=== PATIENT | female | born 1990 | race American Indian/Alaskan Native ===

== ENCOUNTER 2017-01-19 11:18 | Emergency (ER) | payer MEDICAID ==
[2017-01-19 11:24] VITALS: BMI 30.7
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
[2017-01-19] MEDS ORDERED: Acetaminophen-Codeine 300/30 mg Tab PO STA (12:11)
[2017-01-19] MEDS ORDERED: Acetaminophen-Codeine 300/30 mg Tab PO ONE (12:41)
[2017-01-19 13:05] VITALS: BP 118/83; PULSE 78; RESP 20; TEMP 97.8
[2017-01-23 11:59] VITALS: O2SAT 99
== END 2017-01-19 13:05 | disposition home or self-care (01) ==
LOC: C.ER 11:18
DX: S61.411A Laceration without foreign body of right hand, initial encounter (principal); W01.110A Fall on same level from slipping, tripping and stumbling with subsequent striking against sharp glass, initial encounter; Y93.41 Activity, dancing; Y92.89 Other specified places as the place of occurrence of the external cause

== ENCOUNTER 2017-03-20 01:54 | Emergency (ER) | payer MEDICAID ==
[2017-03-20 02:08] VITALS: O2SAT 97
[2017-03-20 02:17] VITALS: BMI 31.3
--- NOTE | 2017-03-20 02:40 | C.PDOC ---
History Of Present Illness Patient is a 26 y/o female who presents to the ED for dental pain to the right side of her mouth for the last week. Patient states she has not been able to visit a dentist yet but has been taking Tramadol and Tylenol with no relief. Denies fever, no difficulty breathing or swallowing. Time Seen by Provider: 03/20/17 02:20 Chief Complaint (Nursing): Dental Pain History Per: Patient History/Exam Limitations: no limitations Onset/Duration Of Symptoms: Days (x1 week) Current Symptoms Are (Timing): Still Present Recent travel outside of the [place]: No Additional History Per: Patient Past Medical History Reviewed: Historical Data, Nursing Documentation, Vital Signs Vital Signs: Last Vital Signs Temp 98.3 F 03/20/17 03:23 Pulse 72 03/20/17 03:23 Resp 18 03/20/17 03:23 BP 140/90 03/20/17 03:23 Pulse Ox 97 03/20/17 03:29 - Medical History PMH: No Chronic Diseases Surgical History: No Surg Hx Family History: States: Unknown Family Hx - Social History Hx Tobacco Use: No Hx Alcohol Use: No Hx Substance Use: No - Immunization History Hx Tetanus Toxoid Vaccination: Yes Hx Influenza Vaccination: No Hx Pneumococcal Vaccination: No Review Of Systems Constitutional: Negative for: Fever ENT: Positive for: Mouth Pain (right side dental pain ) Physical Exam - Physical Exam Appears: Well, Non-toxic, No Acute Distress Skin: Normal Color, Warm, Dry Head: Atraumatic, Normacephalic Eye(s): bilateral: Normal Inspection, EOMI Nose: Normal Oral Mucosa: Moist Tongue: No Swelling Teeth: Caries (right maxillary molar), Tender To Palpation (right maxillary molar) Gingiva: No Erythema, No Swelling, No Abscess Throat: Normal, No Erythema, No Exudate Neck: Normal ROM, Supple Chest: Symmetrical Cardiovascular: Rhythm Regular Respiratory: Normal Breath Sounds Neurological/Psych: Oriented x3, Normal Speech ED Course And Treatment O2 Sat by Pulse Oximetry: 97 (room air) Pulse Ox Interpretation: Normal Progress Note: Plan: Cleocin, Toradol, and Lidocaine 2% administered. Reassessment: On reassessment, patient is resting comfortably, and is in no acute distress. Patient was instructed to follow up with dentist in 1-2 days for further evaluation Disposition - Disposition Disposition: HOME/ ROUTINE Disposition Time: 02:39 Condition: STABLE Additional Instructions: Follow up with your dentist tomorrow for further evaluation. Take medications as prescribed. Return to the emergency department at any time if symptoms persist or worsen. Prescriptions: Clindamycin [Cleocin] 300 mg PO Q6 #28 cap Ketorolac Tromethamine [Toradol] 10 mg PO Q6 PRN #20 tab PRN Reason: Pain, Moderate (4-7) Instructions: Toothache (ED) Forms: [facility] (Vietnamese) - Clinical Impression Clinical Impression: Toothache - Scribe Statement The provider has reviewed the documentation as recorded by the Scribe Meli Yee All medical record entries made by the Scribe were at my direction and personally dictated by me. I have reviewed the chart and agree that the record accurately reflects my personal performance of the history, physical exam, medical decision making, and the department course for this patient. I have also personally directed, reviewed, and agree with the discharge instructions and disposition.
[2017-03-20 03:26] VITALS: BP 140/90; PULSE 72; RESP 18; TEMP 98.3
== END 2017-03-20 03:23 | disposition home or self-care (01) ==
LOC: C.ER 01:54
DX: K08.89 Other specified disorders of teeth and supporting structures (principal)
CPT/HCPCS: 96372; 99284; J1885

== ENCOUNTER 2017-08-18 09:05 | Emergency (ER) | payer MEDICAID ==
[2017-08-18 09:05] VITALS: BMI 31.3
[2017-08-18 09:20] VITALS: RESP 18; TEMP 98; O2SAT 99
[2017-08-18 09:49] LABS: SQUAMOUS EPITHIAL 1 /hpf (0-5); URINE BILIRUBIN NEGATIVE (NEGATIVE); URINE BLOOD NEGATIVE (NEGATIVE); URINE CLARITY Clear (Clear); URINE COLOR Yellow (YELLOW); URINE GLUCOSE (UA) NORMAL (Normal); URINE LEUKOCYTE ESTERASE NEG Leu/uL (Negative); URINE PROTEIN NEGATIVE (NEGATIVE); URINE UROBILINOGEN NORMAL mg/dL (0.2-1.0)
[2017-08-18 09:50] LABS: HCG,QUALITATIVE URINE NEGATIVE (NEGATIVE)
--- NOTE | 2017-08-18 11:22 | C.PDOC ---
History Of Present Illness 27yo female, presents to ED for evaluation of intermittent pelvic pain for the past several months. Patient states she [place] [facility] [place] multiple US and CT scans which indicates she has uterine fibroids. Patient states when she gets Toradol, it helps alleviate her pain. She denies any nausea , vomiting, vaginal bleeding or discharge. No other complaints. Time Seen by Provider: 08/18/17 09:29 Chief Complaint (Nursing): Female Genitourinary History Per: Patient History/Exam Limitations: no limitations Onset/Duration Of Symptoms: Intermittent Episodes, Persistent Current Symptoms Are (Timing): Still Present Associated Symptoms: denies: Nausea, Vomiting, Diarrhea, Constipation Abnormal Vaginal Bleeding: No Past Medical History Reviewed: Historical Data, Nursing Documentation, Vital Signs Vital Signs: Last Vital Signs Temp 98 F 08/18/17 09:19 Pulse 92 H 08/18/17 11:44 Resp 18 08/18/17 11:44 BP 103/69 08/18/17 11:44 Pulse Ox 99 08/18/17 11:44 - Medical History PMH: No Chronic Diseases Surgical History: No Surg Hx Family History: States: Unknown Family Hx - Social History Hx Tobacco Use: No Hx Alcohol Use: No Hx Substance Use: No - Immunization History Hx Tetanus Toxoid Vaccination: Yes Hx Influenza Vaccination: No Hx Pneumococcal Vaccination: No Review Of Systems Except As Marked, All Systems Reviewed And Found Negative. Constitutional: Negative for: Fever, Chills Gastrointestinal: Negative for: Vomiting, Abdominal Pain Genitourinary: Positive for: Pelvic Pain. Negative for: Vaginal Discharge, Vaginal Bleeding Physical Exam - Physical Exam Appears: Non-toxic, No Acute Distress Skin: Normal Color Head: Normacephalic Eye(s): bilateral: Normal Inspection Oral Mucosa: Moist Neck: Normal ROM, Supple Chest: Symmetrical Cardiovascular: Rhythm Regular Respiratory: Normal Breath Sounds, No Wheezing Gastrointestinal/Abdominal: Normal Exam, Soft, No Tenderness Extremity: Normal ROM Neurological/Psych: Oriented x3 ED Course And Treatment O2 Sat by Pulse Oximetry: 99 (RA) Pulse Ox Interpretation: Normal Progress Note: Patient offered labs and US but refuses a workup. Urinalysis with no significant findings. Urine HCG negative. Patient given Toradol 30mg IVP with relief of pain. Stable for discharge home, advised to follow up with OBGYN. Disposition - Disposition Disposition: HOME/ ROUTINE Disposition Time: 11:20 Condition: IMPROVED Additional Instructions: Follow up with PMD and OBGYN within 1-2 days. Return to ED if feel worse. 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 - Scribe Statement The provider has reviewed the documentation as recorded by the Scribe (Yue Mancini) Provider Attestation: All medical record entries made by the Scribe were at my direction and personally dictated by me. I have reviewed the chart and agree that the record accurately reflects my personal performance of the history, physical exam, medical decision making, and the department course for this patient. I have also personally directed, reviewed, and agree with the discharge instructions and disposition.
[2017-08-18 11:46] VITALS: BP 103/69; PULSE 92
== END 2017-08-18 11:45 | disposition home or self-care (01) ==
LOC: C.ER 09:05
DX: R10.2 Pelvic and perineal pain (principal)
CPT/HCPCS: 81001; 84703; 96374; 99284; J1885

== ENCOUNTER 2017-12-09 16:08 | Emergency (ER) | payer MEDICAID ==
[2017-12-09 16:08] VITALS: BMI 31.3
[2017-12-09] MEDS ORDERED: DiphenhydrAMINE 50 mg/ml Inj IVP STA (16:27)
[2017-12-09] MEDS ORDERED: Sodium Chloride 0.9% 1,000 ML IV ONE (16:27)
[2017-12-09] MEDS ORDERED: DiphenhydrAMINE 50 mg/ml Inj ONE (17:03)
[2017-12-09] MEDS ORDERED: Sodium Chloride 0.9% 1,000 ML ONE (17:03)
[2017-12-09 17:25] LABS: BASO # 0.1 K/uL (0.0-0.2); BASO % 0.6 % (0.0-2.0); EOS # 0.2 K/uL (0.0-0.7); EOS % 1.6 % (0.0-4.0); HEMOGLOBIN 13.2 g/dL (11.0-16.0); LYMPH # 4.7 K/uL (1.0-4.3); MEAN CELL VOLUME 93.6 fL (81.0-99.0); MEAN CORPUSCULAR HEMOGLOBIN 32.2 pg (27.0-31.0); MEAN CORPUSCULAR HGB CONC 34.4 g/dL (33.0-37.0); MEAN PLATELET VOLUME 8.3 fL (7.2-11.7); MONO % 6.8 % (0.0-10.0); NEUT # 8.3 K/uL (1.8-7.0); NRBC % 0.1 % (0.0-2.0); RBC 4.12 Mil/uL (3.80-5.20); RED CELL DISTRIBUTION WIDTH 12.9 % (11.5-14.5); WHITE BLOOD COUNT 14.3 K/uL (4.8-10.8)
[2017-12-09 17:38] LABS: ALB/GLOB RATIO 1.7 (1.0-2.1); ALBUMIN 4.8 g/dL (3.5-5.0); ALT/SGPT 65 U/L (9-52); AST/SGOT 41 U/L (14-36); BLOOD UREA NITROGEN 13 mg/dL (7-17); GFR AFRICAN-AMERICAN > 60; GFR NON-AFRICAN AMERICAN > 60
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
[2017-12-09 18:29] VITALS: BP 140/84; PULSE 100; TEMP 99.1
[2017-12-09 18:36] LABS: SQUAMOUS EPITHIAL 4 /hpf (0-5); URINE BACTERIA RARE (<OCC); URINE BILIRUBIN NEGATIVE (NEGATIVE); URINE BLOOD NEGATIVE (NEGATIVE); URINE CLARITY Hazy (Clear); URINE COLOR Straw (YELLOW); URINE GLUCOSE (UA) NORMAL (Normal); URINE LEUKOCYTE ESTERASE NEG Leu/uL (Negative); URINE PROTEIN NEGATIVE (NEGATIVE); URINE UROBILINOGEN NORMAL mg/dL (0.2-1.0)
[2017-12-09 18:37] LABS: HCG,QUALITATIVE URINE NEGATIVE (NEGATIVE)
[2017-12-09 19:02] VITALS: RESP 16
--- NOTE | 2017-12-11 21:02 | CARD ---
APPROVED REPORT EKG Measurement Heart [id number] <Conclusion> Sinus tachycardia Nonspecific T wave abnormality Abnormal ECG
[2017-12-13 07:39] VITALS: O2SAT 99
== END 2017-12-09 19:02 | disposition home or self-care (01) ==
LOC: C.ER 16:08
DX: R51 Headache (principal)
CPT/HCPCS: 80053; 81001; 82948; 84703; 85025; 93005; 96361; 96374; 96375; 99285; J1200; J1885; J2765; J7030

== ENCOUNTER 2018-10-27 03:21 | Emergency (ER) | payer MEDICAID ==
[2018-10-27 03:21] VITALS: BMI 31.3
[2018-10-27 03:50] VITALS: O2SAT 97
[2018-10-27] MEDS ORDERED: Bacitracin Ointment 30 GM TUBE TOP STA (04:58)
[2018-10-27] MEDS ORDERED: Tetanus/Diphtheria Toxoids 0.5 ml Syringe IM ONE ×2 (04:58→05:05)
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
[2018-10-27 05:31] VITALS: BP 114/69; PULSE 94; RESP 20; TEMP 98.2
== END 2018-10-27 05:28 | disposition home or self-care (01) ==
LOC: C.ER 03:21
DX: S01.112A Laceration without foreign body of left eyelid and periocular area, initial encounter (principal); Y08.89XA Assault by other specified means, initial encounter; Y92.410 Unspecified street and highway as the place of occurrence of the external cause; Z23 Encounter for immunization

== ENCOUNTER 2018-11-03 19:30 | Emergency (ER) | payer MEDICAID ==
[2018-11-03 19:30] VITALS: BMI 31.3
[2018-11-03 19:53] VITALS: BP 119/80; PULSE 87; RESP 18; TEMP 98.9; O2SAT 96
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
== END 2018-11-03 21:07 | disposition home or self-care (01) ==
LOC: C.ER 19:30
DX: Z48.02 Encounter for removal of sutures (principal); I10 Essential (primary) hypertension